=== PATIENT | female | born 1990 | race Asian ===

== ENCOUNTER 2017-11-18 09:51 | Inpatient (IN) | payer OTHER ==
[~2017-11-18] VITALS: Ht 157.5 cm; Wt 73.9 kg
[2017-11-18] MEDS ORDERED: TERBUTALINE SULFATE 1 MG/ML VIAL SUBCUT ONE (12:45)
[2017-11-18 12:59] LABS: HEMATOCRIT 35.9 % (36-48); HEMOGLOBIN 11.6 g/dL (12.0-16.0); MEAN CORPUSCULAR HEMOGLOBIN 30 pg (27-31); MEAN CORPUSCULAR HGB CONC 32 % (32-36); MEAN CORPUSCULAR VOLUME 92 fL (79.0-98.0); RED CELL DISTRIBUTION WIDTH 13.8 % (9.0-15.0)
[2017-11-18 13:00] LABS: BASOPHILS # (AUTO) 0.1 K/uL (0.0-0.2); BASOPHILS % (AUTO) 0.9 % (0.0-2.0); EOSINOPHILS % (AUTO) 0.6 % (0.0-4.0); LYMPHOCYTES # (AUTO) 1.4 K/uL (1.0-5.5); LYMPHOCYTES % (AUTO) 19.8 % (20.5-51.5); MONOCYTES # (AUTO) 0.5 K/uL (0.0-1.0); MONOCYTES % (AUTO) 7.2 % (1.7-9.3); NEUTROPHILS % (AUTO) 71.5 % (40.0-70.0); PLATELET COUNT (AUTO) 218 K/uL (130-430)
[2017-11-18] MEDS ORDERED: DINOPROSTONE 10 MG SUPP VG ONE (13:30)
[2017-11-18 13:32] VITALS: BP_SYST 119
[2017-11-18] MEDS: LR 1,000 ML IV SCH (20:50)
[2017-11-19] MEDS ORDERED: DINOPROSTONE 10 MG SUPP VG ONE (02:15)
[2017-11-19] MEDS: LR 1,000 ML IV SCH ×3 (05:00→20:45)
[2017-11-19] MEDS: NALBUPHINE HCL 10 MG/ML AMP IVP PRN ×2 (14:41→22:12)
[2017-11-19] MEDS ORDERED: OXYTOCIN/NORMAL SALINE 1,000 ML IV SCH (15:01)
[2017-11-19] MEDS ORDERED: fentaNYL CITRATE/PF 100 MCG/2 ML AMP ONE (22:53)
[2017-11-20] MEDS: LR 1,000 ML IV SCH (00:20)
[2017-11-20] MEDS ORDERED: fentaNYL CITRATE/PF 100 MCG/2 ML AMP ONE (03:04)
[2017-11-20] MEDS ORDERED: ACETAMINOPHEN 500 MG TABLET PO PRN (03:20)
[2017-11-20] MEDS ORDERED: ACETAMINOPHEN 500 MG TABLET ONE (03:23)
[2017-11-20] MEDS ORDERED: AMPICILLIN SODIUM 2 GM in NS 100 ML IV ONE (05:45)
[2017-11-20] MEDS ORDERED: GENTAMICIN 120 mg/100 mL NS 100 ML IV ONE ×2 (05:49→06:15)
[2017-11-20] MEDS ORDERED: AMPICILLIN SODIUM 2 GM VIAL ONE (05:49)
[2017-11-20] MEDS ORDERED: LR 500 ML IV ONE (08:47)
[2017-11-20] MEDS ORDERED: FENT2mCg/mL-ROPIVA0.2%/NS EPID 150 ML EP SCH (09:00)
[2017-11-20] MEDS ORDERED: METHYLERGONOVINE MALEATE 0.2 MG/ML AMP ONE (09:00)
[2017-11-20] MEDS ORDERED: OXYTOCIN/NORMAL SALINE 1,000 ML IV ONE (09:10)
[2017-11-20] MEDS ORDERED: OXYTOCIN/NORMAL SALINE 1,000 ML IV SCH (09:10)
[2017-11-20] MEDS ORDERED: METHYLERGONOVINE MALEATE 0.2 MG TABLET PO PRN (09:15)
[2017-11-20] MEDS ORDERED: ACETAMINOPHEN 325 MG TABLET PO PRN (09:15)
[2017-11-20] MEDS ORDERED: DERMOPLAST SPRAY TP PRN (09:15)
[2017-11-20] MEDS ORDERED: ANUSOL 1 EA SUPP.RECT (PREPARATION H) RC PRN (09:15)
[2017-11-20] MEDS ORDERED: RHO(D) IMMUNE GLOBULIN/MALTOSE 1500 UNITS/1.3 ML (WINHRO) IM PRN (09:15)
[2017-11-20] MEDS ORDERED: HYDROcodone/ACETAMIN 5-325 MG TAB (NORCO/ VICODIN) PO PRN (09:15)
[2017-11-20] MEDS ORDERED: HYDROCORTISONE 0.5%, 28.35 GM TOPICAL CREAM TP PRN (09:15)
[2017-11-20] MEDS ORDERED: SENNOSIDES/DOCUSATE SODIUM 1 TAB TABLET(SENOKOT-S) PO PRN (09:15)
[2017-11-20] MEDS ORDERED: LANOLIN 7 GM OINT. TP PRN (09:15)
[2017-11-20] MEDS ORDERED: GLYCERIN/WITCH HAZEL (TUCKS PADS) TP PRN (09:15)
[2017-11-20] MEDS ORDERED: MEASLES,MUMPS&RUBELLA VACC/PF 12500 UNIT/0.5 ML VIAL SUBQ PRN (09:15)
[2017-11-20] MEDS ORDERED: METHYLERGONOVINE MALEATE 0.2 MG/ML AMP IM ONE (09:30)
[2017-11-20] MEDS: IBUPROFEN 600 MG TABLET PO SCH ×2 (11:04→17:48)
[2017-11-20] MEDS: HYDROcodone/ACETAMIN 5-325 MG TAB (NORCO/ VICODIN) PO PRN ×2 (11:30→11:58)
[2017-11-20] MEDS ORDERED: ROPIVACAINE 0.2% (NAROPIN) PF SOLUTION 100 ML BOTTLE EP ONE (16:33)
[2017-11-20] MEDS ORDERED: BUPIVACAINE /PF 0.5% 30 ML VIAL INJ ONE (16:33)
[2017-11-20] MEDS: DOCUSATE SODIUM 100 MG CAPSULE PO PRN (17:46)
[2017-11-20] MEDS ORDERED: TEMAZEPAM 15 MG CAPSULE PO PRN (21:00)
[2017-11-21] MEDS: DOCUSATE SODIUM 100 MG CAPSULE PO PRN ×2 (02:24→20:17)
[2017-11-21] MEDS: IBUPROFEN 600 MG TABLET PO SCH ×4 (06:24→20:17)
[2017-11-21 06:55] LABS: HEMATOCRIT 29.9 % (36-48)
[2017-11-22] MEDS: IBUPROFEN 600 MG TABLET PO SCH (02:30)
[2017-11-22] MEDS ORDERED: HYDROCORTISONE 0.5%, 28.35 GM TOPICAL CREAM TP ONE (08:00)
[2017-11-22] MEDS ORDERED: DIPH-TET-PERTUS Vaccine 0.5 ML VIAL/Tdap (ADACEL) I.M. PRN (09:45)
== END 2017-11-22 10:39 | disposition home or self-care (01) | DRG 775 ==
LOC: SPU 12:05
PROVIDERS: ADMIT Obstetrics & Gynecology; ATTEND Obstetrics & Gynecology
PROC: 10E0XZZ Delivery of Products of Conception, External Approach (ICD-10-PCS; principal; 2017-11-19)
PROC: 0HQ9XZZ Repair Perineum Skin, External Approach (ICD-10-PCS; 2017-11-19)
PROC: 00HU33Z Insertion of Infusion Device into Spinal Canal, Percutaneous Approach (ICD-10-PCS; 2017-11-19)
PROC: 3E0R3BZ Introduction of Anesthetic Agent into Spinal Canal, Percutaneous Approach (ICD-10-PCS; 2017-11-19)
PROC: 3E0234Z Introduction of Serum, Toxoid and Vaccine into Muscle, Percutaneous Approach (ICD-10-PCS; 2017-11-22)
DX: O70.0 First degree perineal laceration during delivery (principal); Z23 Encounter for immunization; Z37.0 Single live birth; Z83.3 Family history of diabetes mellitus; Z82.49 Family history of ischemic heart disease and other diseases of the circulatory system; Z3A.39 39 weeks gestation of pregnancy
CPT/HCPCS: 36415; 76815; 81002-TC; 85018-TC; 85025; 86592; 86886; 86900; 86901; 88307; 90715; J0290; J1580; J2210; J2300; J2590; J2795; J3010; J3490; J7120